=== PATIENT | female | born 1975 | race African-American/Black ===

== ENCOUNTER → 2020-09-28 | Outpatient (CLI) | payer OTHER ==
--- NOTE | 2020-09-28 10:07 | RAD ---
EXAM: Lumbar spine, 2 views. HISTORY: Disability determination. COMPARISON: 10/25/2015 FINDINGS: 2 views of the lumbar spine are obtained. 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 There is mild dextro scoliosis centered at L1. There is minimal retrolisthesis of L4 on L5. There is multilevel en dplate remodeling and facet arthropathy, predominantly at L3-L4 and L4-L5. IMPRESSION: 1. Transitional lumbosacral segment, a normal variant. This is considered a sacralized partially sacr alized L5 segment for this dictation. 2. Multilevel degenerative change involving the lumbar spine, primarily at L3-L4 and L4-L5. This is i ncreased compared to the prior study. Electronically signed by: Tati Hyatt MD (09/28/2020 10:02 AM) [id number]
== END ==
LOC: RAD 09:18
PROVIDERS: ATTEND Anesthesiology Pain Medicine
DX: M51.26 Other intervertebral disc displacement, lumbar region (principal); M47.816 Spondylosis without myelopathy or radiculopathy, lumbar region; M43.16 Spondylolisthesis, lumbar region
CPT/HCPCS: 72100